=== PATIENT | male | born 2000 | race Caucasian/White ===

== ENCOUNTER 2019-10-19 14:39 | Emergency (ER) | payer MEDICAID ==
[~2019-10-19] VITALS: Ht 175.3 cm; Wt 70.0 kg
[2019-10-19] MEDS ORDERED: ONDANSETRON 4MG ODT PO ONE (16:00)
[2019-10-19 16:15] VITALS: BP 111/71
== END 2019-10-19 16:40 | disposition home or self-care (01) ==
LOC: ER 14:49
DX: F10.129 Alcohol abuse with intoxication, unspecified (principal); Y90.0 Blood alcohol level of less than 20 mg/100 ml
CPT/HCPCS: 99283